=== PATIENT | female | born 1960 | race Two or more races ===

== ENCOUNTER 2023-12-11 23:55 | Emergency (ER) | payer MEDICAID ==
[~2023-12-11] VITALS: Ht 167.6 cm; Wt 82.8 kg
[2023-12-12 01:34] VITALS: BP 162/89; PULSE 89; RESP 18; TEMP 98.5; O2SAT 97
== END 2023-12-12 01:36 | disposition home or self-care (01) ==
LOC: ER 23:55
DX: T38.3X1A Poisoning by insulin and oral hypoglycemic [antidiabetic] drugs, accidental (unintentional), initial encounter (principal); E11.9 Type 2 diabetes mellitus without complications; I10 Essential (primary) hypertension; Z88.1 Allergy status to other antibiotic agents; Y92.89 Other specified places as the place of occurrence of the external cause

== ENCOUNTER 2023-12-16 16:05 | Emergency (ER) | payer MEDICAID ==
[~2023-12-16] VITALS: Ht 167.6 cm; Wt 81.4 kg
[2023-12-16 17:13] VITALS: BP 149/77; PULSE 74; RESP 16; TEMP 98.2; O2SAT 97
[2023-12-16] MEDS ORDERED: CYCL-837 PO (17:30)
[2023-12-16] MEDS: KETOROLAC TROMETH 30 MG/ML 1ML VIAL IM ONE (17:35)
[2023-12-16] MEDS ORDERED: [UNRECOGNIZED DRUG - CODE] XX (17:45)
== END 2023-12-16 17:43 | disposition home or self-care (01) ==
LOC: ER 16:05
DX: S13.9XXA Sprain of joints and ligaments of unspecified parts of neck, initial encounter (principal); M43.6 Torticollis; E11.9 Type 2 diabetes mellitus without complications; I10 Essential (primary) hypertension; Z88.1 Allergy status to other antibiotic agents; V49.9XXA Car occupant (driver) (passenger) injured in unspecified traffic accident, initial encounter; Y93.89 Activity, other specified; Y92.89 Other specified places as the place of occurrence of the external cause; Y99.8 Other external cause status
CPT/HCPCS: 96372; 99283; J1885

== ENCOUNTER 2024-02-06 08:23 | Emergency (ER) | payer MEDICAID ==
[~2024-02-06] VITALS: Ht 167.6 cm; Wt 85.2 kg
[~2024-02-06 08:23] MED LIST: CYCL-837 PO; [UNRECOGNIZED DRUG - CODE] XX
[2024-02-06 08:37] VITALS: PULSE 83; O2SAT 98
[2024-02-06 08:58] VITALS: BP 151/66; RESP 16
[2024-02-06] MEDS: FLUORESCEIN SOD OPTH TEST STRIP OP ONE (09:07)
[2024-02-06] MEDS ORDERED: TOB03OS OP (09:13)
== END 2024-02-06 09:22 | disposition home or self-care (01) ==
LOC: ER 08:23
DX: S05.02XA Injury of conjunctiva and corneal abrasion without foreign body, left eye, initial encounter (principal); I10 Essential (primary) hypertension; E11.9 Type 2 diabetes mellitus without complications; F17.210 Nicotine dependence, cigarettes, uncomplicated; Z88.1 Allergy status to other antibiotic agents; Z79.899 Other long term (current) drug therapy; W22.8XXA Striking against or struck by other objects, initial encounter; Y93.89 Activity, other specified; Y92.89 Other specified places as the place of occurrence of the external cause; Y99.8 Other external cause status

== ENCOUNTER 2024-02-08 11:06 | Emergency (ER) | payer MEDICAID ==
[~2024-02-08] VITALS: Ht 167.6 cm; Wt 84.9 kg
[~2024-02-08 11:06] MED LIST changes: +TOB03OS OP
[2024-02-08 11:48] VITALS: BP 157/74; PULSE 80; RESP 18; TEMP 98.2; O2SAT 99
[2024-02-08] MEDS ORDERED: TOB03OS OP (12:30)
== END 2024-02-08 12:33 | disposition home or self-care (01) ==
LOC: ER 11:06
DX: S05.02XD Injury of conjunctiva and corneal abrasion without foreign body, left eye, subsequent encounter (principal); F17.210 Nicotine dependence, cigarettes, uncomplicated; E11.9 Type 2 diabetes mellitus without complications; I10 Essential (primary) hypertension; Z88.1 Allergy status to other antibiotic agents; Z76.0 Encounter for issue of repeat prescription; X58.XXXD Exposure to other specified factors, subsequent encounter

== ENCOUNTER 2024-03-05 17:13 | Emergency (ER) | payer MEDICAID ==
[~2024-03-05] VITALS: Ht 167.6 cm; Wt 84.8 kg
[2024-03-05 19:00] VITALS: BP 155/75; PULSE 81; RESP 18; TEMP 97; O2SAT 98
== END 2024-03-05 20:05 | disposition home or self-care (01) ==
LOC: ER 17:13
DX: S13.4XXA Sprain of ligaments of cervical spine, initial encounter (principal); S46.912A Strain of unspecified muscle, fascia and tendon at shoulder and upper arm level, left arm, initial encounter; I10 Essential (primary) hypertension; E11.9 Type 2 diabetes mellitus without complications; F17.210 Nicotine dependence, cigarettes, uncomplicated; Z88.1 Allergy status to other antibiotic agents; V43.52XA Car driver injured in collision with other type car in traffic accident, initial encounter; Y93.89 Activity, other specified; Y92.488 Other paved roadways as the place of occurrence of the external cause; Y99.8 Other external cause status
CPT/HCPCS: 72040

== ENCOUNTER 2024-10-22 09:01 | Emergency (ER) | payer MEDICAID ==
[~2024-10-22] VITALS: Ht 167.6 cm; Wt 79.1 kg
--- NOTE | 2024-10-22 09:46 | ED.PDOC ---
Musculoskeletal HPI Comments 64 year old female presents to the ED with a chief complaint of LT great toe pain onset today (10/22/24). Patient states she was moving her couch when she hit LT great toe, began experiencing bleeding, noticed toe nail is lifted. PMHx DM, HTN. Denies LOC, head injury, nausea, vomiting, diarrhea, headache, dizziness, fever, chills. No other symptoms or modifying factors present at this time. Chief Complaint: Lower Extremity Time Seen by MD: 09:00 Primary Care Provider: UNKNOWN Reviewed Notes: Medications, Allergies Allergies: Coded Allergies: Erythromycin (Verified Allergy, Unknown, 12/12/23) Penicillins (Verified Allergy, Unknown, 10/22/24) Home Meds Active Scripts Tobramycin Sulfate (Tobrex) [address], 2 DROP OP QID, #5 ML Prov:CHANCE BLANCO EXPLOSIVES MIXER OPERATOR 02/08/24 Elastic Bandages & Supports (Futuro Soft Cervical Milla) Collar Mis, UNIT XX, #1 Prov:SULEMAN CASTANON SPOT FACER 12/16/23 Cyclobenzaprine Hcl (Cyclobenzaprine Hcl) 5 Mg Tab, 1 TAB PO TID PRN, #30 TAB Prov:SULEMAN CASTANON 12/16/23 Information Source: Patient Mode of Arrival: Ambulatory Location: Left Extremity Location: Great Toe Timing: Hours Prehospital treatment: None Severity: Moderate Able to Move Extremity: Yes Bear Weight: Limited Pain: Moderate Mechanism: Blunt Trauma Circumstances: Other Onset of Symptoms: After Trauma Symptoms: Pain DVT Risk Factors: NONE Last Tetanus: > 5 Years Associated signs and symptoms: Other (toe pain) Past Medical History PAST MEDICAL HISTORY: DM, HTN Surgical History: Denies all surgeries BUSINESS SERVICES SPECIALIST SALES History: No Pertinent BUSINESS SERVICES SPECIALIST SALES History Family History Family History: Reviewed,noncontributory to illness, No family hx of Cancer, No family hx of DM, No family hx of Heart shawn, No family hx of HTN, No family hx o fKidney shawn, No family hx of Liver shawn, No family hx of Lung shawn, No family hx of Stroke Social History Smoker: Cigarettes Alcohol: Denies ETOH Use Drugs: Denies Drug Use Lives In: Home Constitutional: denies: chills, diaphoresis, fatigue, fever, malaise, sweats, weakness, others EENTM: denies: blurred vision, double vision, ear bleeding, ear discharge, ear drainage, ear pain, ear ringing, eye pain, eye redness, hearing loss, mouth pain, mouth swelling, nasal discharge, nose bleeding, nose congestion, nose pain, photophobia, tearing, throat pain, throat swelling, voice changes, others Respiratory: denies: cough, hemoptysis, orthopnea, SOB at rest, shortness of breath, SOB with excertion, stridor, wheezing, others Cardiovascular: denies: chest pain, dizzy spells, diaphoresis, Dyspnea on exertion, edema, irregular heart beat, left arm pain, lightheadedness, palpitations, PND, syncope, others Gastrointestinal: denies: abdomen distended, abdominal pain, blood streaked bowels, constipated, diarrhea, dysphagia, difficulty swallowing, hematemesis, melena, nausea, poor appetite, poor fluid intake, rectal bleeding, rectal pain, vomiting, others Genitourinary: denies: abnormal vagina bleeding, burning, dyspareunia, dysuria, flank pain, frequency, hematuria, incontinence, pain, , vagina discharge, urgency, others Neurological: denies: dizziness, fainting, headache, left sided numbness, left sided weakness, numbness, paresthesia, pre-existing deficit, right sided numbness, right sided weakness, seizure, speech problems, tingling, tremors, weakness, others Musculoskeletal: reports: others (LT great toe nail pain); denies: back pain, gout, joint pain, joint swelling, muscle pain, muscle stiffness, neck pain Integumetry: denies: bruises, change in color, change in hair/nails, dryness, laceration, lesions, lumps, rash, wounds, others Allergic/Immunocompromised: denies: Difficulty Healing, Frequent Infections, Hives, Itching, others Hematologic/Lymphatic: denies: anemia, blood clots, easy bleeding, easy bruising, swollen glands, others Endocrine: denies: excessive hunger, excessive sweating, excessive thirst, excessive urination, flushing, intolerance to cold, intolerance to heat, unexplained weight gain, unexplained weight loss, others Psychiatric: denies: anxiety, bipolar disorder, depression, hopeless, panic disorder, schizophrenia, sleepless, suicidal, others All Other Systems: Reviewed and Negative Physical Exam General Appearance: No Apparent Distress, Normal HEENT: Normal ENT Inspection, Pharynx Normal, TMs Normal Neck: Full Range of Motion, Non-Tender, Normal, Normal Inspection Respiratory: Chest Non-Tender, Lungs Clear, No Accessory Muscle Use, No Respiratory Distress, Normal Breath Sounds Cardiovascular: No Edema, No JVD, No Murmur, No Gallop, Normal Peripheral Pulses, Regular Rate/Rhythm Breast Exam: Deferred Gastrointestinal: No Organomegaly, Non Tender, No Pulsatile Mass, Normal Bowel Sounds, Soft Genitalia: Deferred Pelvic: Deferred Rectal: Deferred Extremities: No calf tenderness, Normal capillary refill, Normal inspection, Normal range of motion, Non-tender, No pedal edema, Other (RT great toe is partially lifted with intact nailbed flesh attached. No active bleeding) Musculoskeletal : Apperance: Normal Neurologic: Alert, cable tester II-XII nml as Tested, No Motor Deficits, Normal Affect, Normal Mood, No Sensory Deficits Cerebellar Function: Normal Reflexes: Normal Skin: Dry, Normal Color, Warm Lymphatic: No Adenopathy Was a procedure done? Was a procedure done?: No Differential Diagnosis EXT Differential Diagnosis: Dislocation, Laceration, Contusion, Strain, Neurovascular injury X-Ray, Labs, Meds, VS Vital Signs Date Time Temp Pulse Resp B/P (MAP) Pulse Ox O2 Delivery O2 Flow Rate FiO2 10/22/24 09:16 97.8 89 18 129/84 (99) 99 97.8 [place] [address] Ph: [phone] DIAGNOSTIC IMAGING Diagnostic Imaging Report : [id number] Signed PATIENT: TATYANA AUCNAEACCT: [id number] UNIT: [id number] : 1960 LOC: ER ROOM / BED: / AGE / SEX: 64 / F ADM STATUS: REG ER SERVICE [id number] ORDERING PHYSICIAN: FROY SLATER MD PROCEDURE(s): LTOE1 - L 1ST TOE XRAY REASON: injury ORDER NUMBER(s): [id number], ACCESSION NUMBER(s): [id number] CLINICAL INDICATION: injury TECHNIQUE: XY L 1ST TOE XRAY Comparison: None FINDINGS/IMPRESSION: : There is no evidence of acute fracture or dislocation. Hallux valgus. Soft-tissue swelling of the 1st MTP. ATED BY: BARRIE GASTELUM MD DICTATED DATE/TIME: 10/22/24 1032 SIGNED BY: BARRIE GASTELUM MD SIGNED DATE/TIME: 10/22/241031 CC: Time of 1ST Reevaluation: 09:30 Reevaluation 1ST: Unchanged Patient Education/Counseling: Diagnosis, Treatment, Prognosis, Need For Follow Up Family Education/Counseling: No Family Present Additional Information Previous visits reviewed: 2013 due to aches and pains The following tests were ordered, and results were reviewed by me: CARRIE Becerra 1ST TOE XRAY I reviewed and agreed with the following test results read by other providers: CARRIE Becerra 1ST TOE XRAY I discussed treatment and results with medical personnel and: patient Comprehensive systems review obtained and negative except for what is stated in the HPI. pt has torn off some of the flesh of the nail bed along with the nail. the p roximal part of the flap is still attached. this may have viability possibility. the wound is cleaned and reattached to the tissue underneath. pt will be put on antibiotic and return in 48 hours for recheck. Departure 1 Departure Time of Disposition: 10:45 Impression: Primary Impression: Nail avulsion Disposition: HOME / SELF CARE / HOMELESS Condition: Good e-Prescriptions Cephalexin Monohydrate (Cephalexin) 500 Mg Tab 1 TAB PO QID, #40 TAB Prov: FROY SLATER MD 10/22/24 Discharged With: Self Critical Care Note Critical Care Time?: No Stability Stability form required: No I personally scribed for FROY SLATER MD ([email or web address]) on 10/22/24 at 09:46. Electronically submitted by Erin Mosquera ([email or web address]). I personally scribed for FROY SLATER MD ([email or web address]) on 10/22/24 at 09:49. Electronically submitted by Erin Mosquera ([email or web address]). I personally scribed for FROY SLATER MD ([email or web address]) on 10/22/24 at 09:58. Electronically submitted by Erin Mosquera ([email or web address]). I personally scribed for FROY SLATER MD ([email or web address]) on 10/22/24 at 10:40. E lectronically submitted by Erin Mosquera ([email or web address]). FROY SLATER MD October 22, 2024 09:46
--- NOTE | 2024-10-22 10:34 | DVH ---
CLINICAL INDICATION: injury TECHNIQUE: XY L 1ST TOE XRAY Comparison: None FINDINGS/IMPRESSION: : There is no evidence of acute fracture or dislocation. Hallux valgus. Soft-tissue swelling of the 1st MTP.
[2024-10-22] MEDS ORDERED: CEPH500T PO (10:46)
[2024-10-22] MEDS: HYDROcodone-ACET 5/325MG TAB PO ONE (11:20)
[2024-10-22] MEDS: CEPHALEXIN 250 MG CAP PO ONE (11:20)
[2024-10-22 11:21] VITALS: BP 145/68; PULSE 75; RESP 18; TEMP 98.6; O2SAT 99
== END 2024-10-22 11:24 | disposition home or self-care (01) ==
LOC: ER 09:01
DX: S91.202A Unspecified open wound of left great toe with damage to nail, initial encounter (principal); M20.12 Hallux valgus (acquired), left foot; I10 Essential (primary) hypertension; E11.9 Type 2 diabetes mellitus without complications; F17.210 Nicotine dependence, cigarettes, uncomplicated; Z88.0 Allergy status to penicillin; Z88.1 Allergy status to other antibiotic agents; W22.03XA Walked into furniture, initial encounter; Y93.89 Activity, other specified; Y92.89 Other specified places as the place of occurrence of the external cause; Y99.8 Other external cause status
CPT/HCPCS: 73660

== ENCOUNTER 2024-10-25 09:43 | Emergency (ER) | payer MEDICAID ==
[~2024-10-25] VITALS: Ht 167.6 cm; Wt 80.8 kg
[~2024-10-25 09:43] MED LIST changes: +CEPH500T PO
[2024-10-25 10:29] VITALS: BP 109/59; PULSE 69; RESP 17; TEMP 97.4; O2SAT 97
--- NOTE | 2024-10-25 10:54 | ED.PDOC ---
Musculoskeletal HPI Comments A 64 year old female with a past medical history of hypertension and diabetes presents to the emergency department with a chief complaint of wound check onset today (10/25/24). Patient states she was seen at [facility] on 10/22/24 due to hitting LT great toe on couch, has XR done, dressing was applied, antibiotics were prescribed and told to return to ED for wound check in a few days. Patient was taking a shower this morning, wet dressing, came to ED for dressing change. She has been taking medication as prescribed. No other symptoms or modifying factors present at this time. Still able to bear weight Denies previous surgeries to the ankle, foot Denies redness or swelling around the ankle, foot Denies fever chills night sweats nausea vomiting Chief Complaint: Wound Check Time Seen by MD: 10:30 Primary Care Provider: INDIRA Valencia Notes: Nurses Notes, Medications, Allergies Allergies: Coded Allergies: Erythromycin (Verified Allergy, Unknown, 12/12/23) Penicillins (Verified Allergy, Unknown, 10/22/24) Home Meds Active Scripts Cephalexin Monohydrate (Cephalexin) 500 Mg Tab, 1 TAB PO QID, #40 TAB Prov:FROY SLATER MD 10/22/24 Tobramycin Sulfate (Tobrex) [address], 2 DROP OP QID, #5 ML Prov:CHANCE BLANCO NP 02/08/24 Elastic Bandages & Supports (Futuro Soft Cervical Milla) Collar Mis, UNIT XX, #1 Prov:SULEMAN CASTANON 12/16/23 Cyclobenzaprine Hcl (Cyclobenzaprine Hcl) 5 Mg Tab, 1 TAB PO TID PRN, #30 TAB Prov:SULEMAN CASTANON 12/16/23 Information Source: Patient Mode of Arrival: Ambulatory Location: Left Extremity Location: Great Toe Timing: Days Prehospital treatment: None Severity: Moderate Able to Move Extremity: Yes Bear Weight: Limited Pain: Moderate Hand Dominance: Right Mechanism: Blunt Trauma Circumstances: Other Onset of Symptoms: After Trauma Symptoms: Swelling, Pain DVT Risk Factors: NONE Last Tetanus: UTD Associated signs and symptoms: Other (LT toe pain) Past Medical History PAST MEDICAL HISTORY: DM, HTN Surgical History: Denies all surgeries GRAIN DISTRIBUTOR History: No Pertinent GRAIN DISTRIBUTOR History Family History Family History: Reviewed,noncontributory to illness, No family hx of Cancer, No family hx of DM, No family hx of Heart shawn, No family hx of HTN, No family hx ofKidney shawn, No family hx of Liver shawn, No family hx of Lung shawn, No family hx of Stroke Social History Smoker: Cigarettes Alcohol: Denies ETOH Use Drugs: Denies Drug Use Lives In: Home All Other Systems: Reviewed and Negative (as per HPI) Physical Exam General Appearance: No Apparent Distress, Normal HEENT: Normal ENT Inspection, Pharynx Normal, TMs Normal Neck: Full Range of Motion, Non-Tender, Normal, Normal Inspection Respiratory: Chest Non-Tender, Lungs Clear, No Accessory Muscle Use, No Respiratory Distress, Normal Breath Sounds Cardiovascular: No Murmur, No Gallop, Regular Rate/Rhythm Breast Exam: Deferred Gastrointestinal: No Organomegaly, Non Tender, No Pulsatile Mass, Normal Bowel Sounds, Soft Genitalia: Deferred Pelvic: Deferred Rectal: Deferred Extremities: No calf tenderness, Normal capillary refill, No pedal edema Musculoskeletal : Location: Left Extremity Location: Great Toe (TTP to roof of nailbed, nail evulsion, full ROM, full hemostasis ) Apperance: Normal Neurologic: Alert, hand presser II-XII nml as Tested, Normal Affect, Normal Mood, No Sensory Deficits Cerebellar Function: Normal Reflexes: Normal Skin: Dry, Normal Color, Warm Lymphatic: No Adenopathy Was a procedure done? Was a procedure done?: No Differential Diagnosis EXT Differential Diagnosis: Fracture, Sprain, Dislocation X-Ray, Labs, Meds, VS Vital Signs Date Time Temp Pulse Resp B/P (MAP) Pulse Ox O2 Delivery O2 Flow Rate FiO2 10/25/24 10:29 69 17 97 Room Air 10/25/24 10:29 97.4 69 17 109/59 (76) 97 97.4 10/25/24 09:53 97.4 69 17 109/59 (76) 97 97.4 X-Ray, Labs, Meds, VS Comment A 64 year old female with a past medical history of hypertension and diabetes presents to the emergency department with a chief complaint of wound check onset today (10/25/24). Patient arrives alert and oriented, ABC's intact, afebrile, vital signs stable, saturating well in room air The area of infection does not appear to have any loculations/induration based on physical exam. Patient well appearing. VSS. Given History, Exam, and Workup I have low suspicion for Cellulitis, Necrotizing Fasciitis, Abscess, Osteomyelitis, DVT or other emergent problem as a cause for this presentation Patient is stable for discharge at this time. External notes reviewed. Test results and diagnostic imaging interpreted. All diagnostic findings, discharge care, education and instructions provided Follow-up with PCP in 2 to 3 days Patient verbalized understanding and agreed to treatment plan Vital signs stable, afebrile, no acute distress noted Patient ambulatory with strong steady gait Advised to return precautions for any new or worsening symptoms, return to ER immediately for re-evaluation Patient is aware that the purpose of this visit was for an acute medical emergency requiring emergent stabilization. Chronic conditions, including malignancies have not been ruled out. Patient is instructed to follow up with PCP as directed and discharge instructions for continued care and workup. If unable to arrange follow-up, patient is to return to the emergency department for reassessment. Patient (parent or legal guardian if applicable) was given verbal and written discharge instructions and acknowledges understanding. Additional MDM Review of External, Non-ED records: External records reviewed. Discussion with independent historian (EMS, family) history obtained from the patient/parents (if applicable) at bedside Chronic conditions affecting care: DM, HTN Social determinants of health affecting care: None Consideration of admission (observation or admission): I considered escalation of care to admission for this patient, however given the reassuring workup, the patient is safe for outpatient management. Time of 1ST Reevaluation: 10:50 Reevaluation 1ST: Improved Patient Education/Counseling: Diagnosis, Treatment, Need For Follow Up Family Education/Counseling: No Family Present Departure 1 Departure Time of Disposition: 10:51 Impression: Primary Impression: Nail avulsion Disposition: 01 HOME / SELF CARE / HOMELESS Condition: Stable Discharged With: Self Critical Care Note Critical Care Time?: No Stability Stability form required: No Heart Score Heart Score: Heart Score Response (Comments) Value History N/A 0 EKG N/A 0 Age N/A 0 Risk Factors N/A 0 Troponin N/A 0 Total 0 I personally scribed for CHANCE BLANCO NP ([email or web address]) on 10/25/24 at 11:05. Darlene ctronically submitted by Erin Mosquera ([email or web address]). CHANCE BLANCO NP Oct 25, 2024 10:54
== END 2024-10-25 11:05 | disposition home or self-care (01) ==
LOC: ER 09:43
DX: S91.202D Unspecified open wound of left great toe with damage to nail, subsequent encounter (principal); E11.9 Type 2 diabetes mellitus without complications; I10 Essential (primary) hypertension; F17.210 Nicotine dependence, cigarettes, uncomplicated; Z88.1 Allergy status to other antibiotic agents; Z88.0 Allergy status to penicillin; X58.XXXD Exposure to other specified factors, subsequent encounter

== ENCOUNTER 2025-01-14 17:46 | Emergency (ER) | payer MEDICAID ==
[~2025-01-14] VITALS: Ht 167.6 cm; Wt 79.5 kg
--- NOTE | 2025-01-14 21:29 | DVH ---
CLINICAL INDICATION: Status post fall injury TECHNIQUE: 2 views XY R SHOULDER 2+ VIEW XRAY Comparison: None FINDINGS/IMPRESSION: : No acute fracture or dislocation. Mild acromioclavicular and glenohumeral osteoarthrosis. Small mineralization at the lateral and posterior aspect of the greater tuberosity consistent with hy droxyapatite deposition. Unremarkable imaged chest.
--- NOTE | 2025-01-14 21:29 | DVH ---
INDICATION: Status post fall injury TECHNIQUE: 2 views of the lumbar spine were obtained. COMPARISON: None FINDINGS: Assessment is limited by lack of lateral view of the entire lumbar spine. No obvious fracture, vert ebral height loss, or listhesis. Mild appearing multilevel spondylosis. Unremarkable abdominal mian nts and imaged osseous pelvis. IMPRESSION: 1. No acute finding of the lumbar spine within the exam limitation.
--- NOTE | 2025-01-14 21:30 | DVH ---
CLINICAL INDICATION: Status post fall injury TECHNIQUE: 1-view pelvis, 2 views right hip XY R HIP COMPLETE XRAY Comparison: None FINDINGS/IMPRESSION: : No acute fracture dislocation. Normal osseous mineralization. Mild bilateral sacroiliac joint and hi p osteoarthrosis. Small chronic right periacetabular mineralization. Unremarkable pelvic contents.
--- NOTE | 2025-01-14 21:34 | ED.PDOC ---
Terrell. trauma (HPI) HPI Comments 64-year-old female presents to the ED status post trip and fall. Patient states she was at [facility] earlier today tripped fell on her right side complaining of right shoulder hip and low back pain. Describes pain as sharp two right side of her body 8/10 on pain scale. Denies numbness, weakness, head injury, LOC, neck pain, chest pain, shortness of breath, abdominal pain, headache or slurred speech Chief Complaint: Fall Injury Time Seen by MD: 18:16 Primary Care Provider: INDIRA Valencia notes: Nurses Notes, Medications, Allergies Allergies: Coded Allergies: Erythromycin (Verified Allergy, Unknown, 12/12/23) Penicillins (Verified Allergy, Unknown, 10/22/24) Home Meds Active Scripts Cephalexin Monohydrate (Cephalexin) 500 Mg Tab, 1 TAB PO QID, #40 TAB Prov:FROY SLATER MD 10/22/24 Tobramycin Sulfate (Tobrex) [address], 2 DROP OP QID, #5 ML Prov:CHANCE BLANCO NP 02/08/24 Elastic Bandages & Supports (Futuro Soft Cervical Milla) Collar Mis, UNIT XX, #1 Prov:SULEMAN CASTANON ELECTRONICS REPAIR TECHNICIAN 12/16/23 Cyclobenzaprine Hcl (Cyclobenzaprine Hcl) 5 Mg Tab, 1 TAB PO TID PRN, #30 TAB Prov:SULEMAN CASTANON ELECTRONICS REPAIR TECHNICIAN 12/16/23 Information Source: Patient Mode of Arrival: Ambulatory Past Medical History PAST MEDICAL HISTORY: DM, HTN Surgical History: Denies all surgeries CENTRAL PROCESSING TECHNICIAN History: No Pertinent CENTRAL PROCESSING TECHNICIAN History Family History Family History: Reviewed,noncontributory to illness, No family hx of Cancer, No family hx of DM, No family hx of Heart shawn, No family hx of HTN, No family hx ofKidney shawn, No family hx of Liver shawn, No family hx of Lung shawn, No family hx of Stroke Social History Smoker: Cigarettes Alcohol: Denies ETOH Use Drugs: Denies Drug Use Lives In: Home All Other Systems: Reviewed and Negative (see hpi) Physical Exam General Appearance: No Apparent Distress, Normal HEENT: Normal ENT Inspection, Pharynx Normal, TMs Normal Neck: Full Range of Motion, Non-Tender, Normal, Normal Inspection Respiratory: Chest Non-Tender, Lungs Clear, No Respiratory Distress, Normal Breath Sounds Cardiovascular: No Edema, No JVD, No Murmur, No Gallop, Normal Peripheral Pulses, Regular Rate/Rhythm Breast Exam: Deferred Gastrointestinal: No Organomegaly, Non Tender, No Pulsatile Mass, Normal Bowel Sounds, Soft Genitalia: Deferred Pelvic: Deferred Rectal: Deferred Extremities: Normal capillary refill, Normal range of motion, No pedal edema Musculoskeletal : Location: Bilateral Extremity Location: Back (Tenderness on palpation lower back musculature no noted obvious. External trauma left shoulder tenderness on palpation anterior shoulder full range of motion with discomfort) Apperance: Normal Neurologic: Alert, package winder II-XII nml as Tested, No Motor Deficits, Normal Affect, Normal Mood, No Sensory Deficits Cerebellar Function: Normal Reflexes: Normal Skin: Dry, Normal Color, Warm Lymphatic: No Adenopathy Was a procedure done? Was a procedure done?: No Differential Diagnosis Multiple Trauma: Fractures, Intraabdominal Injury, Spine Injury, Hematoma, Laceration X-Ray, Labs, Meds, VS Vital Signs Date Time Temp Pulse Resp B/P (MAP) Pulse Ox O2 Delivery O2 Flow Rate FiO2 01/14/25 21:48 66 18 95 Room Air 01/14/25 21:42 98.1 66 18 109/52 (71) 95 98.1 01/14/25 17:49 97.6 72 18 102/56 98 97.6 X-Ray, Labs, Meds, VS Comment All imaging shows no acute fractures dislocations subluxations or osseous lesions. Home Care. Rest, Use ICE and Moist Heat and stretching as discussed in clinic today. Avoid heavy lifting, and sudden twisting of neck. Take medications as prescribed, side effects, risks, and benefits discussed. NO driving, alcohol, or operating heavy machinery while taking a muscle relaxer medication. ED precautions for increase in pain, extremity weakness/numbness or any concerning symptoms Time of 1ST Reevaluation: 18:16 Reevaluation 1ST: Unchanged Time of 2ND Reevaluation: 21:30 Reevaluation 2ND: Improved Patient Education/Counseling: Diagnosis, Treatment, Prognosis, Need For Follow Up Family Education/Counseling: No Family Present Departure 1 Departure Time of Disposition: 21:33 Impression: Primary Impression: Muscle strain of left shoulder region Qualified Codes: S46.912A - Strain of unspecified muscle, fascia and tendon at shoulder and upper arm level, left arm, initial encounter Additional Impressions: Strain of right hip Qualified Codes: S76.011A - Strain of muscle, fascia and tendon of right hip, initial encounter Strain of lumbar paraspinal muscle Qualified Codes: S39.012A - Strain of muscle, fascia and tendon of lower back, initial encounter Disposition: 01 HOME / SELF CARE / HOMELESS Condition: Stable Discharged With: Self Critical Care Note Critical Care Time?: No Stability Stability form required: NEGIN Hernandez Jan 14, 2025 21:34
[2025-01-14 21:42] VITALS: BP 109/52; TEMP 98.1
[2025-01-14 21:48] VITALS: PULSE 66; RESP 18; O2SAT 95
== END 2025-01-14 21:48 | disposition home or self-care (01) ==
LOC: ER 17:46
DX: S46.912A Strain of unspecified muscle, fascia and tendon at shoulder and upper arm level, left arm, initial encounter (principal); S76.011A Strain of muscle, fascia and tendon of right hip, initial encounter; S39.012A Strain of muscle, fascia and tendon of lower back, initial encounter; F17.210 Nicotine dependence, cigarettes, uncomplicated; Z88.1 Allergy status to other antibiotic agents; Z88.0 Allergy status to penicillin; W01.0XXA Fall on same level from slipping, tripping and stumbling without subsequent striking against object, initial encounter; Y93.89 Activity, other specified; Y92.89 Other specified places as the place of occurrence of the external cause; Y99.8 Other external cause status
CPT/HCPCS: 72100; 73030; 73502

== ENCOUNTER 2025-05-04 16:07 | Emergency (ER) | payer MEDICAID ==
[~2025-05-04] VITALS: Ht 167.6 cm; Wt 80.5 kg
--- NOTE | 2025-05-04 16:31 | ED.PDOC ---
History of Present Illness HPI Comments Patient is a 64-year-old female with past medical history of hypertension, dyslipidemia, diabetes, asthma, COPD who comes in due to presyncope. According to the patient, earlier today while she was walking she started feeling lightheaded, she was able to stabilize herself by holding onto a door handle her legs gave way and she was down on the floor for a few minutes, unsure if she had loss of consciousness, per patient she uses egg on her feet by 2 people. Notes she had similar symptoms 4 months ago, did not seek medical care at the time. Denies any trauma or impact. On review of systems patient is complaining of urinary frequency and dizziness. Past medical history: Hypertension, dyslipidemia, diabetes, asthma, COPD Past surgical history: , jaw surgery Home medications: Patient is on multiple antihypertensive medication including hydrochlorothiazide, lisinopril and nifedipine, unable to provide an accurate and complete med rec Social & Personal history: Smokes 7 cigarettes per day for the past 50 years. Drinks alcohol occasionally. Occasionally uses edible THC gummies, denies using any other drugs. Patient seen and examined at bedside. Patient is alert and oriented to time, place person and responding to all questions. Eyes: No Pain, No Vision change, No Conjunctivae inflammation, No Eyelid inflammation, No Other, No Redness ENT: No Ear pain, No Ear discharge, No Nose pain, No Nose discharge, No Nose congestion, No Mouth pain, No Mouth swelling, No Throat pain, No Throat swelling, No Other Cardiovascular: No Chest Pain, No Palpitations, No Orthopnea, No Paroxysmal No Dyspnea, No Edema, No Lt Headedness, No Other Respiratory: No Cough, No Dry, No Shortness of breath, No SOB with exertion, No Wheezing, No Hemoptysis, No Pleuritic Pain, No Sputum, No Other Gastrointestinal: No Nausea, No Vomiting, No Abdominal Pain, No Diarrhea, No Constipation, No Melena, No Hematochezia, No Other Genitourinary: No Dysuria, Frequency, No Incontinence, No Hematuria, No Retention, No Other Musculoskeletal: No other, No neck pain, No shoulder pain, No arm pain, No back pain, No hand pain, No leg pain, No foot pain Skin: No Rash, No Lesions, No Jaundice, No Bruising, No Other Chief Complaint: Syncope Time Seen by MD: 16:15 Primary Care Provider: INDIRA Allergies: Coded Allergies: Erythromycin (Verified Allergy, Unknown, 12/12/23) Penicillins (Verified Allergy, Unknown, 10/22/24) Home Meds Active Scripts Cephalexin Monohydrate (Cephalexin) 500 Mg Cap, 1 CAP PO BID for 7 Days, #20 CAP Prov:SHARON OAKES 05/04/25 Cephalexin Monohydrate (Cephalexin) 500 Mg Tab, 1 TAB PO QID, #40 TAB Prov:FROY SLATER MD 10/22/24 Tobramycin Sulfate (Tobrex) [address], 2 DROP OP QID, #5 ML Prov:CHANCE BLANCO NP 02/08/24 Elastic Bandages & Supports (Futuro Soft Cervical Milla) Collar Mis, UNIT XX, #1 Prov:SULEMAN MORALES 12/16/23 Cyclobenzaprine Hcl (Cyclobenzaprine Hcl) 5 Mg Tab, 1 TAB PO TID PRN, #30 TAB Prov:SULEMAN MORALES 12/16/23 Mode of Arrival: Ambulatory Past Medical History PAST MEDICAL HISTORY: DM, HTN Surgical History: Denies all surgeries ADOBE DEVELOPER History: No Pertinent ADOBE DEVELOPER History Family History Family History: Reviewed,noncontributory to illness, No family hx of Cancer, No family hx of DM, No family hx of Heart shawn, No family hx of HTN, No family hx ofKidney shawn, No family hx of Liver shawn, No family hx of Lung shawn, No family hx of Stroke Social History Smoker: Cigarettes Alcohol: Denies ETOH Use Drugs: Denies Drug Use Lives In: Home Physical Exam General Appearance: No Apparent Distress HEENT: Normal ENT Inspection, PERRL/EOMI Neck: Non-Tender, Normal, Normal Inspection Respiratory: Expiration, Inspiration, No Accessory Muscle Use, Wheezing Cardiovascular: No Murmur, Normal Peripheral Pulses, Regular Rate/Rhythm Breast Exam: Deferred Gastrointestinal: Non Tender, No Pulsatile Mass, Normal Bowel Sounds Genitalia: Deferred Pelvic: Deferred Rectal: Rectal Exam not done Extremities: No calf tenderness, Normal capillary refill, Normal inspection, Normal range of motion, Non-tender, No pedal edema Neurologic: Alert, No Motor Deficits, Normal Mood, No Sensory Deficits Cerebellar Function: Normal Reflexes: NOT DONE Skin: Dry, None, Normal Color, Warm Peripheral Pulses: 2+ dorsalis pedis (R), 2+ dorsalis pedis (L) Lymphatic: NOT DONE Was a procedure done? Was a procedure done?: No Differential Dx Considerations may include: Presyncope Syncope Autonomic dysfunction Polypharmacy Vasovagal syncope X-Ray, Labs, Meds, VS Vital Signs Date Time Temp Pulse Resp B/P (MAP) Pulse Ox O2 Delivery O2 Flow Rate FiO2 05/04/25 16:31 64 05/04/25 16:10 97.6 77 18 151/80 99 97.6 Lab Test 05/04/25 17:26 05/04/25 16:42 05/04/25 16:39 Range/Units Troponin I High Sensitivity 4 3 L </=34 ng/L Urine Color Yellow Yellow Urine Clarity Turbid H Clear Urine pH 6.0 5.0-9.0 Urine Specific [place] 1.026 1.001-1.035 Urine Protein 1+ H Negative Urine Ketones Negative Negative Urine Blood Negative Negative /uL Urine Nitrite Negative Negative Urine Bilirubin Negative Negative Urine Urobilinogen 2 H Negative mg/dL Urine Leukocyte Esterase 1+ Negative /uL Urine RBC 3 0 - 4 /hpf Urine Microscopic WBC 18 H 0-5 /HPF Urine Squamous Epithelial Cells Few <5 /hpf Urine Bacteria Few H None Seen /hpf Urine Mucus Few None Seen Urine Glucose Normal Normal mg/dL White Blood Count 11.7 H 4.4-10.8 10^3/uL Red Blood Count 4.70 4.0-5.20 10^6/uL Hemoglobin 13.2 12.2-16.2 g/dL Hematocrit 39.5 36.0-46.0 % Mean Corpuscular Volume 84.0 80.0-100.0 fL Mean Corpuscular Hemoglobin 28.2 28.0-32.0 pg Mean Corpuscular Hemoglobin Concent 33.6 32.0-36.0 g/dL Red Cell Distribution Width 13.9 11.8-14.3 % Platelet Count 360 140-450 10^3/uL Mean Platelet Volume 7.8 6.9-10.8 fL Neutrophils (%) (Auto) 65.1 37.0-80.0 % Lymphocytes (%) (Auto) 26.3 10.0-50.0 % Monocytes (%) (Auto) 5.7 0.0-12.0 % Eosinophils (%) (Auto) 1.9 0.0-7.0 % Basophils (%) (Auto) 1.0 0.0-2.0 % Neutrophils # (Auto) 7.6 1.6-8.6 10 ^3/uL Lymphocytes # (Auto) 3.1 0.4-5.4 10 ^3/uL Monocytes # (Auto) 0.7 0-1.3 10 ^3/uL Eosinophils # (Auto) 0.2 0-0.8 10 ^3/uL Basophils # (Auto) 0.1 0-0.2 10 ^3/uL Nucleated Red Blood Cells 0.1 % Sodium Level 143 136-145 mmol/L Potassium Level 3.6 3.5-5.1 mmol/L Chloride Level 103 98-107 mmol/L Carbon Dioxide Level 34 H 20-31 mmol/L Anion Gap 6 5-15 Blood Urea Nitrogen 18 9-23 mg/dL Creatinine 1.08 H 0.550-1.02 mg/dL Glomerular Filtration Rate Calc 58 >90 mL/min BUN/Creatinine Ratio 16.7 10.0-20.0 Serum Glucose 151 H 74-106 mg/dL Calcium Level 10.4 8.7-10.4 mg/dL Time of 1ST Reevaluation: 17:30 Reevaluation 1ST: Improved Time of 2ND Reevaluation: 18:45 Reevaluation 2ND: Improved Patient Education/Counseling: Diagnosis, Treatment, Prognosis, Need For Follow Up Family Education/Counseling: No Family Present SEPSIS Sepsis Screen Date sepsis recognized/suspect: May 04, 2025 Time Sepsis recognized/suspect: 1611 Recent Procedure: No On Antibiotic Therapy: No Respiratory Rate >20: No Heart Rate >90: No Temp<36 C (96.8 F) or >38.3 C: No SBP <90 or MAP <65 mmHG: No New Acute Mental Status Change: No Is the patient on CPAP, BIPAP,: No Physician Orders Chest Two Views Routine (05/04/25 16:31) Troponin-I Hs (05/04/25 19:33) Head Without Contrast (05/04/25 16:35) Vital Signs Date Time Temp Pulse Resp B/P (MAP) Pulse Ox O2 Delivery O2 Flow Rate FiO2 05/04/25 16:31 64 05/04/25 16:10 97.6 77 18 151/80 99 97.6 Laboratory Tests Test 05/04/25 16:39 White Blood Count 11.7 10^3/uL (4.4-10.8) H Departure 1 Departure Time of Disposition: 19:00 Impression: Primary Impression: Pre-syncope Additional Impressions: UTI (urinary tract infection) Qualified Codes: N39.0 - Urinary tract infection, site not specified Polypharmacy Disposition: HOME / SELF CARE / HOMELESS Condition: Stable e-Prescriptions Cephalexin Monohydrate (Cephalexin) 500 Mg Cap 1 CAP PO BID for 7 Days, #20 CAP Prov: SHARON OAKES RESIDENT 05/04/25 Comments Patient was noted to have a largely unremarkable CBC and BMP, UA showed mild UTI, patient was sent home with cephalexin 500 mg b.i.d. for 70s. At the time of discharge, patient had stable vital signs. Patient was noted to be on multiple antihypertensive medications including lisinopril, olmesartan, hydrochlorothiazide and nifedipine. Patient was instructed to stop taking olmesartan and follow up with her PCP at her earliest convenience for medication reconciliation, per patient she has an appointment with her PCP on 05/12/2025. Critical Care Note Critical Care Time?: No Stability Stability form required: SHARON Maravilla RESIDENT May 04, 2025 16:31
[2025-05-04 16:50] LABS: Hematocrit 39.5 % (36.0-46.0); Hemoglobin 13.2 g/dL (12.2-16.2); Mean Corpuscular Hemoglobin 28.2 pg (28.0-32.0); Mean Corpuscular Volume 84.0 fL (80.0-100.0); Nucleated Red Blood Cells % 0.1 %
--- NOTE | 2025-05-04 16:54 | ECG ---
[facility] Test Date: 2025-05-04 Test Time: 16:31:09 Pat Name: JADIEL ACUNA Department: ED Room: Gender: F Relief Manager: MJ : 1960 Requested By: BALJINDER BILLS Order Number: [id number] Reading MD: Konstantin Rocha Measurements Intervals Adams Rate: 64 P: -6 MS: 183 QRS: 84 QRSD: 77 T: 68 QT: 409 QTc: 422 Interpretive Statements Sinus rhythm Anterior infarct, old Electronically Signed On 05-05-2025 20:11:10 PST by Konstantin Rocha Please click the below link to view image of tracing.
[2025-05-04 16:59] LABS: Anion Gap 6 (5-15); Chloride 103 mmol/L (98-107); Potassium 3.6 mmol/L (3.5-5.1); Sodium 143 mmol/L (136-145)
[2025-05-04 17:00] LABS: Calcium 10.4 mg/dL (8.7-10.4); Carbon Dioxide 34 mmol/L (20-31)
[2025-05-04 17:05] LABS: BUN/Creatinine Ratio 16.7 (10.0-20.0); Blood Urea Nitrogen 18 mg/dL (9-23); Glucose 151 mg/dL (74-106)
--- NOTE | 2025-05-04 17:15 | DVH ---
XY CHEST TWO VIEWS ROUTINE CLINICAL HISTORY: wheezes COMPARISON: None TECHNIQUE: Frontal and lateral view of the chest was obtained FINDINGS: Lines and Tubes: None Lungs: No focal consolidation. Pleura: No effusion. No pneumothorax. Cardiomediastinal contours: Unremarkable Bones: No acute osseous abnormality. IMPRESSION: 1. No acute cardiopulmonary disease. 2. No pulmonary consolidations. 3. No pleural effusions or pneumothorax.
--- NOTE | 2025-05-04 17:33 | DVH ---
COMPUTERIZED TOMOGRAPHY OF THE HEAD WITHOUT CONTRAST REASON FOR STUDY: Presyncope COMPARISON: XY CERVICAL SPINE 3V on DOS: 03/05/24 TECHNIQUE: Helical tomographic scans were obtained through the brain. 2-D coronal and sagittal reformatted images are provided. Radiation optimization: All CT scans at this facility use at least one of these dose optimization techniques: Automated exposure control mA and/or kV adjustment per patient size (includes targeted exams where dose is matched to clinical indication) or iterative reconstruction. RADIATION DOSE: CTDI: 61 mGy DLP: 1089 mGy-cm FINDINGS: No suspicious intracranial hyperdensity to suggest acute blood. There are old lacunar infarcts in the left basal ganglia. There is no mass effect nor midline shift. There is mild generalized volume loss with compensatory enlargement of the CSF spaces. There is no hydrocephalus. The suprasellar cistern is intact. There are scattered periventricular and deep white matter hypodensities that are most consistent with chronic microangiopathic changes. The calvarium is intact. The visualized mastoid air cells are clear. There is mild scattered mucosal disease in the visualized paranasal sinuses. IMPRESSION: No acute intracranial abnormality. Mild generalized volume loss with chronic small vessel ischemic change. 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 Mild scattered mucosal disease in the visualized paranasal sinuses. Correlate clinically for acute sinusitis.
[2025-05-04 19:09] LABS: Urine Protein, UAD 1+ (Negative)
[2025-05-04] MEDS ORDERED: CEPH500C PO (19:16)
[2025-05-04] MEDS ORDERED: BLOO1KIT54 XX (19:20)
[2025-05-04 19:48] VITALS: BP 160/81; PULSE 76; TEMP 97.4; O2SAT 96
[2025-05-04 19:57] VITALS: RESP 16
== END 2025-05-04 20:03 | disposition home or self-care (01) ==
LOC: ER 16:07
DX: N39.0 Urinary tract infection, site not specified (principal); R55 Syncope and collapse; I10 Essential (primary) hypertension; E11.9 Type 2 diabetes mellitus without complications; E78.5 Hyperlipidemia, unspecified; F17.210 Nicotine dependence, cigarettes, uncomplicated; I25.2 Old myocardial infarction; J44.89 Other specified chronic obstructive pulmonary disease; Z88.0 Allergy status to penicillin; Z88.1 Allergy status to other antibiotic agents
CPT/HCPCS: 36415; 70450; 71046; 80048; 81001; 84484; 85025; 93005